=== PATIENT | male | born 1980 | race Caucasian/White ===

== ENCOUNTER 2018-01-04 09:06 | Day surgery (SDC) | payer BC ==
[2018-01-04 09:01] LABS: Urine Appearance CLEAR; Urine Bilirubin NEGATIVE (NEG); Urine Blood 3+ (NEG); Urine Color YELLOW; Urine Glucose NEGATIVE (NEG); Urine Protein NEGATIVE (NEG); Urine Specific Gravity 1.015 (1.005-1.030); Urine Urobilinogen 0.2 mg/dL (0.2-1.0); Urine pH 5.5 (5.0-7.0)
[2018-01-04 09:03] LABS: Urine Microscopic Reflex ORDER UMIC
[2018-01-04 09:15] LABS: Protime INR 0.93
[2018-01-04 09:15] LABS: Absolute Lymphocytes (CBC) 2.3 K/uL (0.7-4.9); Absolute Monocytes 0.6 K/uL (0.1-1.3); Absolute Neutrophil 4.6 K/uL (1.8-8.0); Basophils % 0.7 % (0-1.3); Eosinophils % 5.6 % (0-4.4); Hematocrit 45.2 % (39.6-49.0); Lymphocytes % 28.7 % (15.3-44.8); MCH 30.6 pg (27.0-35.0); MCV 87.7 fL (80-100); MPV 8.4 fL (7.6-11.3); Monocytes % 7.5 % (3.3-12.3); RBC Red Blood Cell Count 5.15 M/uL (4.33-5.43)
[2018-01-04 09:20] LABS: Urine Bacteria NONE SEEN /HPF (NONE SEEN); Urine Culture Reflex Order NOT NEEDED; Urine Mucus LIGHT /HPF (NONE SEEN); Urine RBC >50 /HPF (NONE SEEN)
[2018-01-04] MEDS ORDERED: GENTAMICIN 100 MG/100 ML BAG 100 MG/100 ML BAG IV ONE (09:20)
[2018-01-04 09:21] LABS: BUN Blood Urea Nitrogen 13 mg/dL (7-18); Bicarbonate 30 mmol/L (21-32); Glucose Level 96 mg/dL (74-106); Potassium 4.1 mmol/L (3.5-5.1); Sodium Level 144 mmol/L (136-145)
[2018-01-04] MEDS: Ringers Lactate 1,000 ML IV ONE ×2 (09:42→12:53)
--- NOTE | 2018-01-04 10:30 | RAD REPORT ---
EXAM DESCRIPTION: Michel Falk (2 Views)01/04/2018 9:03 am CLINICAL HISTORY: Abdominal pain. Preop for ureteral stent placement COMPARISON: December 25, 2017 FINDINGS: The lungs appear clear of acute infiltrate. The heart is normal size IMPRESSION: No acute abnormalities displayed
--- NOTE | 2018-01-04 10:33 | RAD REPORT ---
EXAM DESCRIPTION: RAD - Abdomen 1 View (KUB) - 01/04/2018 9:03 am CLINICAL HISTORY: ICD N 20.0 FINDINGS: The bowel gas pattern is unremarkable. The patient's known ureteral calculus is not visualized on this exam
--- NOTE | 2018-01-04 13:52 | EKG ---
Test Date: 2018-01-04 Test Time: 08:44:13 [employer] Airline Pilot: BLANKA MEASUREMENT RESULTS: Intervals: Rate: 63 MT: 130 QRSD: 104 QT: 394 QTc: 403 [place]: P: 55 MT: 130 QRS: 68 T: 62 INTERPRETIVE STATEMENTS: Normal sinus rhythm Normal ECG No previous ECG available for comparison Electronically Signed On 01-04-18 13:51:40 CDT by Yo Magaña
[2018-01-04 14:05] VITALS: O2SAT 100
[2018-01-04 14:24] VITALS: BP 129/82; TEMP 97.1
[2018-01-04] MEDS ORDERED: TRAMADOL HCL 50 MG TAB ONE (14:36)
--- NOTE | 2018-01-04 14:51 | RAD REPORT ---
EXAM DESCRIPTION: RAD - Urethrocystogrphy Retrograde - 01/04/2018 2:43 pm CLINICAL HISTORY: STENT Flank pain COMPARISON: No comparisons FINDINGS: Fluoroscopic imaging of the abdomen is submitted as part of a retrograde ureterogram with stent placement. Details of the procedure are not available. Total fluoro time: 15 seconds.
== END 2018-01-04 15:00 | disposition home or self-care (01) ==
LOC: OR 09:06
PROVIDERS: ATTEND Urology
PROC: BT1DYZZ Fluoroscopy of Right Kidney, Ureter and Bladder using Other Contrast (ICD-10-PCS; 2018-01-04)
PROC: 0T768DZ Dilation of Right Ureter with Intraluminal Device, Via Natural or Artificial Opening Endoscopic (ICD-10-PCS; 2018-01-04)
PROC: 0T768DZ Dilation of Right Ureter with Intraluminal Device, Via Natural or Artificial Opening Endoscopic (ICD-10-PCS; principal; 2018-01-04 12:00)
DX: Q62.39 Other obstructive defects of renal pelvis and ureter (principal); N20.0 Calculus of kidney; M54.5 Low back pain
CPT/HCPCS: 36415; 51610; 71046; 74018; 74450; 80048; 81003; 81015; 85025; 85610; 85730; 87086; 87088; 93005; J1580; Q9967